=== PATIENT | female | born 1995 | race Caucasian/White ===

== ENCOUNTER 2018-12-24 20:34 | Emergency (ER) | payer OTHER ==
[~2018-12-24] VITALS: Ht 170.2 cm; Wt 95.7 kg
== END 2018-12-24 23:36 | disposition home or self-care (01) ==
LOC: ER 20:34
DX: O20.0 Threatened abortion (principal)

== ENCOUNTER → 2019-01-03 | Emergency (ER) | payer OTHER ==
[~2019-01-03] VITALS: Ht 170.2 cm; Wt 93.4 kg
== END | disposition home or self-care (01) ==
LOC: ER 23:33
DX: O03.9 Complete or unspecified spontaneous abortion without complication (principal)